=== PATIENT | female | born 1950 | race Caucasian/White ===

== ENCOUNTER 2016-10-07 11:59 | Emergency (ER) | payer MEDICARE ==
[2016-10-07] MEDS ORDERED: OXYMETAZOLINE 0.05% NASAL 15 SPRAYS/15 ML BTL NASAL ONE (12:25)
[2016-10-07] MEDS ORDERED: TETRACAINE/BENZOCAINE/BUTAMBEN 1 SPRAY CAN TOPICAL ONE (13:08)
--- NOTE | 2016-10-07 13:51 | ER PHYSICIAN DOCUMENTATION ---
Physician Documentation [facility] Name:Allie Au Age:66 yrs Sex:Female :1950 Arrival Date:10/07/2016 Time:11:59 Bed2 Private MD: Khadar Mark Disposition: 10/07/16 13:32 Discharged to Home/Self Care. Impression: Epistaxis - Nose Bleed. - Condition is Good. - Discharge Instructions: EPISTAXIS (Adult). - Medical Reconciliation form form. - Follow up: Private Physician; When: 1 week; Reason: Recheck today's complaints. - Problem is new. - Symptoms have improved. HPI: 10/07 13:29 This 66 yrs old Female presents to ER via Private Vehicle with complaints of sc Nose Bleed. 13:29 The patient presents with a nose bleed, that is apparently anterior, occurred dry air, sc that is intermittent. Onset: The symptom(s)/episode began/occurred yesterday. Historical: - Allergies: No known drug Allergies; - Home Meds: 1. None - PMHx: None; - PSHx: Hysterectomy; - Tetanus: > 10 years. - Ebola Screening: : Patient negative for fever greater than or equal to 101.5 degrees Fahrenheit, and additional compatible Ebola Virus Disease symptoms. Patient denies exposure to infectious person. Patient denies travel to an Ebola-affected area in the 21 days before illness onset. . - Immunization history: Pneumococcal vaccine is up to date, Flu Vaccine < 1 year. - Social history: Smoking status: Patient states was never smoker of tobacco. ROS: 13:30 Constitutional: Negative for fever, chills, and weight loss. sc Eyes: Negative for injury, pain, redness, and discharge. Skin: Negative for injury, rash, and discoloration. 13:30 Neuro: Negative for headache, weakness, numbness, tingling, and seizure. sc 13:30 ENT: Positive for nose bleed, Negative for injury or acute deformity, drainage from ear(s), foreign body sensation, ear pain, hearing loss, pulling at ears. Exam: 13:30 ENT: Nose: abrasion, that is superficial, on the left nostril, lateral left nare, ? sc needing eval for ? skin lesion, will fu with derm in [place]. Vital Signs: 12:16 BP 156 / 89; Pulse 66; Resp 16; Temp 98.0(TE); Pulse Ox 95% on R/A; Weight 74.84 kg; lp Height 5 ft. 5 in. (165.10 cm); Pain 0/10; 12:16 Body Mass Index 27.46 (74.84 kg, 165.10 cm) lp Procedures: 13:31 Epistaxis treatment: A small amount of bleeding noted from Treated using cauterization, sc silver nitrate, Bleeding stopped. MDM: 12:04 Patient medically screened. mo 13:31 Differential diagnosis: spontaneous epistaxis. Data reviewed: vital signs, nurses sc notes, and as a result, I will discharge patient. Dispensed Medications: 12:15 Drug: Afrin Drops (0.05 %) 1 sprays; Route: Intranasal; Site: left nare; lp 13:44 Follow up: Response: No adverse reaction lp Signatures: Yoly Garcia RN RN Khadar Winslow MD MD mo
--- NOTE | 2016-10-07 13:51 | ER NURSING DOCUMENTATION ---
Nurse's Notes [facility] Name:Allie Au Age:66 yrs Sex:Female :1950 Arrival Date:10/07/2016 Time:11:59 Bed2 Private MD: Diagnosis:Epistaxis - Nose Bleed Presentation: 10/07 12:02 Acuity: RIVERA 4 tg 12:15 Presenting complaint: Patient states: Epistaxis. Transition of care: Home. lp 12:15 Method Of Arrival: Private Vehicle lp Triage Assessment: 12:16 General: Appears in no apparent distress, Behavior is appropriate for age. Pain: Denies lp pain. Historical: - Allergies: No known drug Allergies; - Home Meds: 1. None - PMHx: None; - PSHx: Hysterectomy; - Tetanus: > 10 years. - Ebola Screening: : Patient negative for fever greater than or equal to 101.5 degrees Fahrenheit, and additional compatible Ebola Virus Disease symptoms. Patient denies exposure to infectious person. Patient denies travel to an Ebola-affected area in the 21 days before illness onset. . - Immunization history: Pneumococcal vaccine is up to date, Flu Vaccine < 1 year. - Social history: Smoking status: Patient states was never smoker of tobacco. Screenin:17 Infectious Disease Risk None. Abuse screen: Denies threats or abuse. Denies injuries lp from another. Nutritional screening: No deficits noted. Assessment: 12:17 See Triage Assessment done by same RN. lp Vital Signs: 12:16 BP 156 / 89; Pulse 66; Resp 16; Temp 98.0(TE); Pulse Ox 95% on R/A; Weight 74.84 kg; lp Height 5 ft. 5 in. (165.10 cm); Pain 0/10; 12:16 Body Mass Index 27.46 (74.84 kg, 165.10 cm) lp ED Course: 12:01 Patient arrived in ED. ama 12:03 Triage completed. tg 12:04 Khadar Winslow MD is Attending Physician. sc 12:15 Yoly Garcia, REGLA is Primary Nurse. lp 12:[address] Winslow notified. lp 12:17 Valuables Remains with patient Patient has correct armband on for positive lp identification. Administered Medications: 12:15 Drug: Afrin Drops (0.05 %) 1 sprays; Route: Intranasal; Site: left nare; lp 13:44 Follow up: Response: No adverse reaction lp Outcome: 13:32 Discharge ordered by . maribel 13:50 Discharged to home ambulatory. lp 13:50 Condition: stable 13:50 Instructed on discharge instructions, follow up and referral plans. Nosebleed care 13:51 Patient left the ED. lp 10/08 15:13 Discharge F/U Call: Unable to reach: no answer mk2 Signatures: Zaid Ventura RN RN Yoly Garcia RN RN Khadar Harrison MD MD sc Kruger, Meg RN RN mk2 Elmer Nicholson, Reg Reg ama
== END 2016-10-07 13:51 | disposition home or self-care (01) ==
LOC: ER 11:59
DX: R04.0 Epistaxis (principal); S00.31XA Abrasion of nose, initial encounter
CPT/HCPCS: 30901; 99282; 99283